=== PATIENT | male | born 2000 ===

== ENCOUNTER 2018-01-30 19:08 | Day surgery (SDC) | payer OTHER ==
[2018-01-30] MEDS ORDERED: Fentanyl 250 MCG/5 ML VIAL ONE (19:37)
[2018-01-30] MEDS ORDERED: Midazolam HCl 2 mg/2 ml Vial ONE (19:37)
[2018-01-30] MEDS ORDERED: Sodium Chloride 0.9% 20 ML ONE (19:49)
[2018-01-30] MEDS ORDERED: Bupivacaine HCl 0.5%/Epinephrine 1:200,000/PF 30 ml Vial ONE (19:51)
[2018-01-30] MEDS ORDERED: PROPOFOL 200 MG/20 ML VIAL ONE (19:55)
[2018-01-30] MEDS ORDERED: Lidocaine 1% PF 5 ML VIAL ONE (19:55)
[2018-01-30] MEDS ORDERED: Dexamethasone 20 MG/5 ML VIAL ONE (19:55)
[2018-01-30] MEDS ORDERED: Glycopyrrolate 0.2 MG/ML 5 ML SYRINGE ONE (19:55)
--- NOTE | 2018-01-31 00:13 | HP ---
DATE OF ADMISSION: 01/30/2018 HISTORY OF PRESENT ILLNESS: Gabino Juan is a 17-year-old male patient from [place] history of right lower quadrant pain, followed by nausea, vomiting, anorexia, increased pain with movement. He was evaluated at primary ER where he had a CAT scan, confirming appendicitis. LABORATORY DATA: Sodium 140, potassium 3.9, chloride 99, BUN 11, creatinine 0.7. Liver function leia ts normal. White count 20, hemoglobin 14.3. PHYSICAL EXAMINATION: GENERAL: 155 pounds, 70 kilograms. VITAL SIGNS: Temperature 97.9, pulse 108, respiratory rate 18, 99.67 MAP, and 129/85 blood pressure. HEENT: Unremarkable. LUNGS: Clear to auscultation. CARDIAC: Regular rate and rhythm without murmur or gallop. ABDOMEN: Soft, tenderness in right lower quadrant, guarding, rebound. EXTREMITIES: Unremarkable. No edema. NEUROLOGIC: No focal deficit. SKIN: Normal. Nonicteric sclerae. White, nonjaundiced or nonicteric. ASSESSMENT AND PLAN: Acute appendicitis. Recommend laparoscopic appendectomy. Risk of infect ion, bleeding, reoperation, open procedure discussed, he consents. Questions answered.
--- NOTE | 2018-01-31 03:11 | OP ---
PREOPERATIVE DIAGNOSIS: Acute appendicitis. POSTOPERATIVE DIAGNOSIS: Acute appendicitis. PROCEDURE: Laparoscopic video appendectomy. SURGEON: Bryan Layton MD ANESTHESIA: General. Local 0.5% Marcaine with epinephrine, 30 mL. PROCEDURE: The patient was taken to the operating room under general anesthesia, Garcia catheter plac ed at the beginning of the procedure, removed at the end. Abdomen prepared with ChloraPrep, draped i n routine fashion. Local anesthetic infiltrated into skin and subcutaneous tissue about each port si te. Total volume used 0.5% Marcaine with epinephrine. An infraumbilical incision was made. Pneumop eritoneum to 15 mmHg obtained with the Veress needle, replacing it with a 5 port laparoscope inserted . Right lateral subcostal incision made and a [address]. Suprapubic incision made and a 12 port placed. Mesoappendix taken down with LigaSure to the stump of the appendix, divided with Endo-JUICE bl ue load stapler. Cecal stump was hemostatic after clips applied. Good hemostasis was obtained. Remy endix was acutely inflamed, removed and submitted to Pathology. Good hemostasis noted. Irrigant and pneumoperitoneum evacuated. All instruments removed. Suprapubic fascia approximated with 0 Vicryl. All skin incisions closed with interrupted subdermal 4-0 Monocryl and DermaGlue applied.
== END 2018-01-30 22:05 | disposition home or self-care (01) ==
LOC: SDC 19:08
PROVIDERS: ATTEND Specialist
PROC: 0DTJ4ZZ Resection of Appendix, Percutaneous Endoscopic Approach (ICD-10-PCS; principal; 2018-01-30)
DX: K35.80 Unspecified acute appendicitis (principal)
CPT/HCPCS: 88304; J0131; J0670; J1100; J2001; J2250; J2704; J3010